=== PATIENT | male | born 1955 | race Asian ===

== ENCOUNTER 2024-07-22 13:45 | Emergency (ER) | payer SELFPAY ==
[2024-07-22] MEDS ORDERED: ACET-683 PO (14:09)
[2024-07-22] MEDS: BOOSTRIX VACCINE (TETANUS/DIPHTH/ACEL. PERTUSSIS) 0.5ML SYR IM.IMMUN ONE (14:20)
[2024-07-22] MEDS: BACITRACIN OINTMENT 30GM TUBE TOP ONE (14:54)
[2024-07-22 15:00] VITALS: TEMP 98.4
[2024-07-22] MEDS ORDERED: BACI500O8 TOP (15:12)
[2024-07-22 15:30] VITALS: BP 142/84; O2SAT 97
== END 2024-07-22 15:40 | disposition home or self-care (01) ==
LOC: EDBD 13:45 → M ED 13:45
DX: T23.212A Burn of second degree of left thumb (nail), initial encounter (principal); T25.222A Burn of second degree of left foot, initial encounter; T25.221A Burn of second degree of right foot, initial encounter; X00.1XXA Exposure to smoke in uncontrolled fire in building or structure, initial encounter; Z23 Encounter for immunization; Y92.009 Unspecified place in unspecified non-institutional (private) residence as the place of occurrence of the external cause; Y93.89 Activity, other specified; Y99.9 Unspecified external cause status; Z79.1 Long term (current) use of non-steroidal anti-inflammatories (NSAID); Z79.2 Long term (current) use of antibiotics; T31.0 Burns involving less than 10% of body surface